=== PATIENT | female | born 1995 | race Caucasian/White ===

== ENCOUNTER 2016-11-08 17:34 | Emergency (ER) | payer SELFPAY ==
[2016-11-08] MEDS ORDERED: KETOROLAC TROMETHAMINE INJ 30 MG/ML VIAL IM ONE (19:01)
--- NOTE | 2016-11-08 19:01 | ED.PDOC ---
History of Present Illness - General Chief Complaint: Abdominal Pain Stated Complaint: abdominal pain Time Seen by Provider: 11/08/16 18:52 Information Source: patient Exam Limitations: no limitations - History of Present Illness Initial Comments: Ms. Azeb Foster 20 y/o female stated that she started having intermittent cramplike abdominal pains for the last 3 months went to see her md had work up done but results never called up her abdominal pain went away then recurred after a month went to see her md again abdominal x rays taken according to her md was normal but for the last 3 days had same and had 2 episodes of loose stool Denies dysuria,constipation blood in stool or urine no nausea or vomiting no vaginal discharge. Abdominal Pain Onset Location: suprapubic, other - 3 months ago Pain Radiation: no radiation Quality: cramping, intermittent Timing/Duration: intermittent Improving Factors: nothing Worsening Factors: nothing Associated Symptoms: denies symptoms Review of Systems - Review of Systems Constitutional: States: no symptoms reported EENTM: States: no symptoms reported Respiratory: States: no symptoms reported Cardiology: States: no symptoms reported Gastrointestinal/Abdominal: States: see HPI Genitourinary: States: no symptoms reported Musculoskeletal: States: no symptoms reported Skin: States: no symptoms reported Neurological: States: no symptoms reported Endocrine: States: no symptoms reported Hematologic/Lymphatic: States: no symptoms reported Past Medical History (General) - Patient Medical History Hx Asthma: No Hx Diabetes: No Surgical History: no surgical history - Vaccination History Hx Tetanus, Diphtheria Vaccination: No Hx Influenza Vaccination: No Hx Pneumococcal Vaccination: No - Social History Hx Tobacco Use: No Hx Alcohol Use: No Hx Substance Use: No - Activities of Daily Living Hospice Agency (if applicable):: None - Female History Patient is a Female of Child Bearing Age (10 -59 yrs old): Yes Patient : No Family Medical History - Family History Mother Family History: No Known Hx Family Diabetes: Yes - mom Hx Family Cancer: Yes - mom-leukemia Hx Family;Other: mother has a bad lung;multiple sclerosis Physical Exam - Physical Exam General Appearance: Alert, Anxious, Comfortable, No apparent distress Eyes, Ears, Nose, Throat Exam: PERRL/EOMI, normal ENT inspection, TMs normal, pharynx normal Neck: non-tender, full range of motion, supple, normal inspection Respiratory: chest non-tender, lungs clear, normal breath sounds Cardiovascular/Chest: normal peripheral pulses, regular rate, rhythm, no murmur Peripheral Pulses: No deficit Gastrointestinal/Abdominal: normal bowel sounds, soft, tenderness - lower abdomen no peritoneal signs Back Exam: normal inspection, no CVA tenderness, no vertebral tenderness Extremity: normal range of motion, non-tender, normal inspection, no pedal edema , no calf tenderness Neurologic: no motor/sensory deficits, alert, normal mood/affect, oriented x 3 Skin Exam: normal color, warm/dry Lymphatic: no adenopathy Progress - Results/Orders Results/Orders: 11/08/16 19:46 Abdomen/Pelvis w/Contrast [CT] Stat 11/08/16 19:47 Hold Metformin x 48Hrs [id number] Laboratory Results WBC 17.4 K/mm3 (4.8-10.8) H 11/08/16 19:15 RBC 4.65 M/mm3 (4.20-5.40) 11/08/16 19:15 Hgb 13.6 gm/dL (12.0-16.0) 11/08/16 19:15 Hct 41.8 % (36.0-47.0) 11/08/16 19:15 MCV 89.8 fl (81.0-99.0) 11/08/16 19:15 MCH 29.2 pg (27.0-31.0) 11/08/16 19:15 MCHC 32.5 g/dL (33.0-37.0) L 11/08/16 19:15 RDW 14.7 % (11.5-14.5) H 11/08/16 19:15 Plt Count 286 K/mm3 (130-400) 11/08/16 19:15 MPV 7.6 fl (7.40-10.4) 11/08/16 19:15 Absolute Neuts (auto) 13.20 K/uL (1.8-6.8) H 11/08/16 19:15 Absolute Lymphs (auto) 2.60 K/uL (1.0-3.4) 11/08/16 19:15 Absolute Monos (auto) 1.40 K/uL (0.2-0.8) H 11/08/16 19:15 Absolute Eos (auto) 0.10 K/uL (0.0-0.4) 11/08/16 19:15 Absolute Basos (auto) 0.20 K/uL (0.0-0.1) H 11/08/16 19:15 Neutrophils % 76.1 % (42.0-78.0) 11/08/16 19:15 Lymphocytes % 14.8 % (20.0-50.0) L 11/08/16 19:15 Monocytes % 7.9 % (2.0-9.0) 11/08/16 19:15 Eosinophils % 0.3 % (1.0-5.0) L 11/08/16 19:15 Basophils % 0.9 % (0.0-2.0) 11/08/16 19:15 Sodium 137 mmol/L (135-145) 11/08/16 19:15 Potassium 4.2 mmol/L (3.6-5.0) 11/08/16 19:15 Chloride 106 mmol/L (101-111) 11/08/16 19:15 Carbon Dioxide 26 mmol/L (21-31) 11/08/16 19:15 Anion Gap 9.2 (12-18) L 11/08/16 19:15 BUN 17 mg/dL (7-18) 11/08/16 19:15 Creatinine 0.78 mg/dL (0.6-1.3) 11/08/16 19:15 BUN/Creatinine Ratio 21.8 (10-20) H 11/08/16 19:15 Random Glucose 92 mg/dL (70-105) 11/08/16 19:15 Serum Osmolality 275.0 mOsm/L (275-295) 11/08/16 19:15 Calcium 9.5 mg/dL (8.4-10.2) 11/08/16 19:15 Total Bilirubin 1.1 mg/dL (0.2-1.0) H 11/08/16 19:15 AST 24 IU/L (10-42) 11/08/16 19:15 ALT 18 IU/L (10-60) 11/08/16 19:15 Alkaline Phosphatase 59 IU/L (75-270) L 11/08/16 19:15 Serum Total Protein 8.3 gm/dL (6.4-8.2) H 11/08/16 19:15 Albumin 4.6 g/dl (3.2-5.5) 11/08/16 19:15 Globulin 3.7 gm/dL (2.3-3.5) H 11/08/16 19:15 Albumin/Globulin Ratio 1.2 (1.1-1.9) 11/08/16 19:15 Urine Color Yellow (Yellow) 11/08/16 18:00 Urine Appearance Clear (Clear) 11/08/16 18:00 Urine pH 6.5 (4.5-7.8) 11/08/16 18:00 Ur Specific [place] 1.025 (1.005-1.030) 11/08/16 18:00 Urine Protein Negative mg/dL 11/08/16 18:00 Urine Glucose (UA) Negative mg/dL (Negative) 11/08/16 18:00 Urine Ketones Negative mg/dL (NEGATIVE) 11/08/16 18:00 Urine Blood Negative (Negative) 11/08/16 18:00 Urine Nitrite Negative 11/08/16 18:00 Urine Bilirubin Negative (NEGATIVE) 11/08/16 18:00 Urine Urobilinogen 0.2 mg/dL (0.2-1.0) 11/08/16 18:00 Ur Leukocyte Esterase Negative (Negative) 11/08/16 18:00 Urine RBC 0 /hpf 11/08/16 18:00 Urine WBC 0 /hpf 11/08/16 18:00 Ur Epithelial Cells 1-3 /hpf 11/08/16 18:00 Urine Bacteria 0 11/08/16 18:00 Urine HCG, Qual Negative 11/08/16 19:15 - EKG/XRAY/CT CT Ordered: Yes - ptotic kidneys.left ovarian cyst 2.4cm Departure - Departure Clinical Impression: Abdominal pain Qualifiers: Abdominal location: lower abdomen Qualified Code(s): R10.30 - Lower abdominal pain, unspecified Time of Disposition: 21:15 Disposition: Discharge to Home or Self Care Condition: Good Departure Forms: ED Discharge - Pt. Copy, Patient Portal Self Enrollment Instructions: DI for Abdominal Pain-Adult Diet: low fat, low cholesterol, other - avoid spicy foods Referrals: JABIER BROWN [Primary Care Provider] - 1-2 Weeks Prescriptions: Hyoscyamine Sulfate [Levsin] 0.125 mg PO Q6HRS PRN #20 tab PRN Reason: Abdominal Cramping Promethazine Tab [Phenergan Tablet] 50 mg PO TID PRN #20 tab PRN Reason: Nausea Home Medications: Ambulatory Orders Hyoscyamine Sulfate [Levsin] 0.125 mg PO Q6HRS PRN #20 tab 11/08/16 Promethazine Tab [Phenergan Tablet] 50 mg PO TID PRN #20 tab 11/08/16 Additional Instructions: FOLLOW UP WITH PRIMARY MD FOR REFERRAL TO GI SPECIALIST
[2016-11-08] MEDS ORDERED: DICYCLOMINE HCL INJ 20 MG/2 ML AMP IM ONE (19:02)
--- NOTE | 2016-11-08 20:57 | CT ---
EXAM DESCRIPTION: Abdomen/Pelvis w/Contrast CLINICAL HISTORY: 20 years Female pain COMPARISON: 03/09/2016. TECHNIQUE: Contiguous axial images obtained through the abdomen and pelvis following IV contrast. Reformatted images obtained. This exam was performed according to our department optimization program which includes automated exposure control, adjustment of the mA and/or kv according to patient size and/or use of iterative reconstruction technique. FINDINGS: The lung bases are clear. The liver appears unremarkable. The spleen and pancreas appear unremarkable. No adrenal masses. Right pelvic and left ptotic kidneys. No hydronephrosis. The gallbladder is visualized. No aneurysmal dilatation of the aorta. No bowel obstruction. The visualized portions of the appendix appears unremarkable. No free pelvic fluid. Cyst in the left ovary measuring 2.4 cm in maximum diameter. IMPRESSION: Cyst in the left ovary measuring 2.4 cm. Based upon patient age and cyst size, no follow-up imaging is recommended. Right pelvic and left ptotic kidneys. Electronically signed by: Mahamed Liu MD 11/08/2016 8:56 PM CDT
[2016-11-08] MEDS ORDERED: HYDROcodone 7.5MG/APAP 325MG 1 EA TAB PO ONE (21:23)
[2016-11-08 21:54] VITALS: BP 108/68; TEMP 98.8; O2SAT 97
== END 2016-11-08 21:30 | disposition home or self-care (01) ==
LOC: ER 17:34
DX: R10.30 Lower abdominal pain, unspecified (principal); N83.202 Unspecified ovarian cyst, left side
CPT/HCPCS: 36415; 74177; 80053; 81001; 81025; 85025; J0500; J1885

== ENCOUNTER → 2019-10-21 | Outpatient (CLI) | payer BC ==
--- NOTE | 2019-10-21 12:21 | US ---
US THYROID CLINICAL STATEMENT:23 years Female NODULE. COMPARISON: None TECHNIQUE: Transcutaneous scanning, grayscale and Doppler modes. FINDINGS: Size right thyroid lobe: 5.8 x 2.9 x 1.9 cm Size left thyroid lobe: 5.6 x 2.2 x 1.5 cm Size isthmus: 0.41 cm Estimated total number of nodules greater than or equal to 1 cm: 2.. Heterogeneous. No distinct cysts or large calcifications. No overlying skin lesions. Nodule 1: Size: 2.0 x 1.1 x 0.8 cm Location: Right Mid Composition: solid or almost completely solid: 2 points Echogenicity: hypoechoic: 2 points Shape: wider than tall: 0 points Margins: smooth: 0 points Echogenic foci: none: 0 points ACR Total Points: 4; ACR TI-RADS risk category: TR4 - moderately suspicious nodule. Nodule 2: Size: 1.2 x 0.6 x 0.6 cm Location: Left Lower Composition: solid or almost completely solid: 2 points Echogenicity: hypoechoic: 2 points Shape: wider than tall: 0 points Margins: smooth: 0 points Echogenic foci: none: 0 points ACR Total Points: 4; ACR TI-RADS risk category: TR4 - moderately suspicious nodule. Soft tissue around the thyroid gland showing no dominant solid mass, no distinct cyst, no large calcifications. IMPRESSION: 1. Nodule 1: ACR TI-RADS 2017 Category TR4. Recommend: Ultrasound-guided fine needle aspiration. Recommendations based upon [facility] Best Practice recommendations and ACR TI-RADS 2017 guidelines. Please see below*. 2. Nodule 2: ACR TI-RADS 2017 Category TR4. Recommend: Follow-up ultrasound in 1 year. 3. Soft tissue around the thyroid gland is unremarkable. *ACR TI-RADS 2017 Recommendations for imaging follow-up of nodules: TR1: No FNA or follow up TR2: No FNA or follow up TR3: FNA if >/= 2.5 cm, follow up if 1.5 - 2.4 cm in 1, 3, and 5 years TR4: FNA if >/= 1.5 cm, follow up if 1.0 - 1.4 cm in 1, 2, 3, and 5 years TR5: FNA if >/= 1.0 cm, follow up if 0.5 - 0.9 cm every year for 5 years ACR TI-RADS recommends that no more than two nodules with the highest ACR TI-RADS total point should be biopsied and no more than four nodules should be followed. These recommendations do not apply to patients with increased risk for thyroid cancer or patients with symptomatic thyroid disease. Electronically signed by: Burton Dent MD 10/21/2019 12:19 PM CDT
== END ==
LOC: US 11:09
PROVIDERS: ATTEND Family Medicine
DX: E04.1 Nontoxic single thyroid nodule (principal)